=== PATIENT | male | born 1960 | race Caucasian/White ===

== ENCOUNTER 2022-06-20 17:12 | Inpatient (IN) | payer MEDICARE ==
[2022-06-20] VITALS (105 sets, daily range): BP systolic 74–145; BP diastolic 54–86
[~2022-06-20] VITALS: Ht 170.2 cm; Wt 62.8 kg
[2022-06-20 18:11] LABS: BASO% 0.3 % (0-3); EOS% 0.2 % (0-8); HEMATOCRIT 37.8 % (39.0-50.0); IMMATURE GRANULOCYTES 0.3 % (0.0-5.0); LYMPH% 3.8 % (15-41); MEAN CELL VOLUME 96.4 fL CALC (80.0-100.0); MEAN CORPUSCULAR HGB 28.1 pG CALC (26.0-32.0); MEAN CORPUSCULAR HGB CONC 29.1 g/dL CAL (32.0-36.0); MONO% 11.7 % (2-13); NEUT# 12.57 thou/uL (1.82-7.42); NEUT% 83.7 % (42-76); RED BLOOD COUNT 3.92 mill/uL (4.70-6.10); RED CELL DISTRI WIDTH 15.3 % (11.5-15.5)
[2022-06-20 18:22] LABS: ALBUMIN 3.8 g/dL (3.2-5.0); BILIRUBIN, TOTAL 0.2 mg/dL (0.2-1.3); CREATININE 1.5 mg/dL (0.7-1.3); POTASSIUM 4.4 mmol/l (3.5-5.1); PROTHROMBIN TIME 10.2 SECONDS (9.0-12.5); TOTAL PROTEIN 6.7 g/dL (6.3-8.2)
[2022-06-20] MEDS ORDERED: LOPRESSOR25 M1 PO (21:41)
[2022-06-20] MEDS ORDERED: PREDNISODT10 PO (21:43)
[2022-06-20] MEDS ORDERED: PROAIR DIG108 MCG/AC (21:45)
[2022-06-20] MEDS ORDERED: NORVASC5 M1 PO (21:45)
[2022-06-20] MEDS ORDERED: ESCITALOPRAM OX10 MG PO (21:46)
[2022-06-20] MEDS ORDERED: MELATONIN3 MG PO (21:47)
[2022-06-20] MEDS ORDERED: ALPRAZOLAM0.25 MG PO (21:49)
[2022-06-21] VITALS (46 sets, daily range): BP systolic 90–180; BP diastolic 62–133
[2022-06-21 06:15] LABS: MEAN CELL VOLUME 96.3 fL CALC (80.0-100.0); MEAN CORPUSCULAR HGB 27.9 pG CALC (26.0-32.0); MEAN CORPUSCULAR HGB CONC 28.9 g/dL CAL (32.0-36.0); RED BLOOD COUNT 3.23 mill/uL (4.70-6.10); RED CELL DISTRI WIDTH 14.9 % (11.5-15.5)
[2022-06-21 06:17] LABS: HEMATOCRIT 31.1 % (39.0-50.0)
[2022-06-21 06:20] LABS: ALKALINE PHOSPHATASE 56 u/l (38-126); ANION GAP 9 (6-22 (CALC)); BUN 16 mg/dL (9-20); BUN/CREATININE RATIO 25 (12-20 (CALC)); CALCULATED LDLCHOLESTEROL 44 mg/dL (62-129 (CALC)); CARBON DIOXIDE 31 mmol/l (22-30); CHLORIDE 101 mmol/l (95-108); CHOLESTEROL HDL RATIO 2.8 (<4.4 (CALC)); CREATININE 0.6 mg/dL (0.7-1.3); GFR FOR AFR.AMER. > 60 ML/MIN (>=60 (CALC)); GFR OTHER RACES > 60 ML/MIN (>=60 (CALC)); HDL CHOLESTEROL 42 mg/dL (39.0-59.0); MAGNESIUM 1.7 mg/dL (1.6-2.3); POTASSIUM 4.4 mmol/l (3.5-5.1); SGOT/AST 19 u/l (17-59); SODIUM 137 mmol/l (137-146); TOTAL CHOLESTEROL 115 mg/dl (0-199); TOTAL TRIGLYCERIDES 146 mg/dl (0-149); VLDL CHOLESTROL 29 mg/dl (8-62 (CALC))
[2022-06-21 06:28] LABS: ALBUMIN 2.9 g/dL (3.2-5.0); TOTAL PROTEIN 5.1 g/dL (6.3-8.2)
[2022-06-22] VITALS (25 sets, daily range): BP systolic 109–144; BP diastolic 60–85
[2022-06-22 05:25] LABS: HEMATOCRIT 28.3 % (39.0-50.0); HEMOGLOBIN 8.4 g/dl (14.0-18.0); MEAN CORPUSCULAR HGB 28.2 pG CALC (26.0-32.0); MEAN CORPUSCULAR HGB CONC 29.7 g/dL CAL (32.0-36.0); RED BLOOD COUNT 2.98 mill/uL (4.70-6.10); RED CELL DISTRI WIDTH 15.1 % (11.5-15.5)
[2022-06-22 05:42] LABS: ALBUMIN 3.1 g/dL (3.2-5.0); ALKALINE PHOSPHATASE 52 u/l (38-126); ANION GAP 6 (6-22 (CALC)); BUN 15 mg/dL (9-20); BUN/CREATININE RATIO 26 (12-20 (CALC)); CARBON DIOXIDE 37 mmol/l (22-30); CHLORIDE 98 mmol/l (95-108); CREATININE 0.6 mg/dL (0.7-1.3); GFR FOR AFR.AMER. > 60 ML/MIN (>=60 (CALC)); GFR OTHER RACES > 60 ML/MIN (>=60 (CALC)); POTASSIUM 4.1 mmol/l (3.5-5.1); SGOT/AST 20 u/l (17-59); SODIUM 137 mmol/l (137-146); TOTAL PROTEIN 5.7 g/dL (6.3-8.2)
[2022-06-23] VITALS (17 sets, daily range): BP systolic 114–151; BP diastolic 57–84
[2022-06-23 05:55] LABS: HEMATOCRIT 29.5 % (39.0-50.0); HEMOGLOBIN 8.9 g/dl (14.0-18.0); MEAN CELL VOLUME 93.7 fL CALC (80.0-100.0); MEAN CORPUSCULAR HGB 28.3 pG CALC (26.0-32.0); MEAN CORPUSCULAR HGB CONC 30.2 g/dL CAL (32.0-36.0); RED BLOOD COUNT 3.15 mill/uL (4.70-6.10); RED CELL DISTRI WIDTH 14.6 % (11.5-15.5)
[2022-06-23 06:07] LABS: ALKALINE PHOSPHATASE 48 u/l (38-126); ANION GAP 4 (6-22 (CALC)); BUN 14 mg/dL (9-20); BUN/CREATININE RATIO 23 (12-20 (CALC)); CARBON DIOXIDE 36 mmol/l (22-30); CHLORIDE 97 mmol/l (95-108); CREATININE 0.6 mg/dL (0.7-1.3); GFR FOR AFR.AMER. > 60 ML/MIN (>=60 (CALC)); GFR OTHER RACES > 60 ML/MIN (>=60 (CALC)); MAGNESIUM 1.9 mg/dL (1.6-2.3); POTASSIUM 3.9 mmol/l (3.5-5.1); SGOT/AST 15 u/l (17-59); SODIUM 133 mmol/l (137-146); TOTAL PROTEIN 5.6 g/dL (6.3-8.2)
[2022-06-24 03:59] VITALS: BP 119/81
[2022-06-24 05:40] LABS: HEMATOCRIT 34.3 % (39.0-50.0); HEMOGLOBIN 10.4 g/dl (14.0-18.0); IMMATURE GRANULOCYTES 0.5 % (0.0-5.0); LYMPH% 4.1 % (15-41); MEAN CELL VOLUME 92.5 fL CALC (80.0-100.0); MEAN CORPUSCULAR HGB CONC 30.3 g/dL CAL (32.0-36.0); MONO% 22.8 % (2-13); NEUT# 2.84 thou/uL (1.82-7.42); NEUT% 72.6 % (42-76); RED BLOOD COUNT 3.71 mill/uL (4.70-6.10); RED CELL DISTRI WIDTH 14.3 % (11.5-15.5)
[2022-06-24 05:58] LABS: ALBUMIN 2.8 g/dL (3.2-5.0); ALKALINE PHOSPHATASE 47 u/l (38-126); ANION GAP 6 (6-22 (CALC)); BUN 15 mg/dL (9-20); BUN/CREATININE RATIO 24 (12-20 (CALC)); CARBON DIOXIDE 37 mmol/l (22-30); CHLORIDE 95 mmol/l (95-108); CREATININE 0.6 mg/dL (0.7-1.3); GFR FOR AFR.AMER. > 60 ML/MIN (>=60 (CALC)); GFR OTHER RACES > 60 ML/MIN (>=60 (CALC)); POTASSIUM 4.3 mmol/l (3.5-5.1); SGOT/AST 14 u/l (17-59); SODIUM 134 mmol/l (137-146); TOTAL PROTEIN 4.9 g/dL (6.3-8.2)
[2022-06-24 07:03] VITALS: BP 139/90
[2022-06-24 07:53] LABS: URINE BILIRUBIN - DIPSTICK NEGATIVE (NEGATIVE); URINE BLOOD DIPSTICK NEGATIVE (NEGATIVE); URINE COLOR YELLOW; URINE GLUCOSE - DIPSTICK NEGATIVE (NEGATIVE); URINE KETONE NEGATIVE (NEGATIVE); URINE LEUK ESTERASE NEGATIVE (NEGATIVE); URINE PROTEIN - DIPSTICK NEGATIVE (NEG-TRACE); URINE SPECIFIC GRAVITY 1.025; URINE UROBILINOGEN - DIPSTICK 0.2 E.U./dL (0.2)
[2022-06-24 07:54] LABS: URINE NITRITE - DIPSTICK NEGATIVE (Negative)
[2022-06-24 10:35] VITALS: BP 131/85
[2022-06-24 14:30] VITALS: BP 115/79
[2022-06-24 19:00] VITALS: BP 138/85
[2022-06-24 19:27] VITALS: BP 138/85
[2022-06-25] VITALS (8 sets, daily range): BP systolic 129–140; BP diastolic 86–96
[2022-06-25 05:18] LABS: HEMATOCRIT 38.2 % (39.0-50.0); HEMOGLOBIN 11.9 g/dl (14.0-18.0); MEAN CELL VOLUME 91.2 fL CALC (80.0-100.0); MEAN CORPUSCULAR HGB 28.4 pG CALC (26.0-32.0); MEAN CORPUSCULAR HGB CONC 31.2 g/dL CAL (32.0-36.0); RED BLOOD COUNT 4.19 mill/uL (4.70-6.10); RED CELL DISTRI WIDTH 14.6 % (11.5-15.5)
[2022-06-25 05:30] LABS: ALBUMIN 2.8 g/dL (3.2-5.0); ALKALINE PHOSPHATASE 52 u/l (38-126); ANION GAP 8 (6-22 (CALC)); BUN 17 mg/dL (9-20); BUN/CREATININE RATIO 24 (12-20 (CALC)); CARBON DIOXIDE 36 mmol/l (22-30); CHLORIDE 93 mmol/l (95-108); CREATININE 0.7 mg/dL (0.7-1.3); GFR FOR AFR.AMER. > 60 ML/MIN (>=60 (CALC)); GFR OTHER RACES > 60 ML/MIN (>=60 (CALC)); MAGNESIUM 2.1 mg/dL (1.6-2.3); POTASSIUM 4.9 mmol/l (3.5-5.1); SGOT/AST 14 u/l (17-59); SODIUM 132 mmol/l (137-146); TOTAL PROTEIN 4.9 g/dL (6.3-8.2)
[2022-06-26 00:26] VITALS: BP 134/89
[2022-06-26 03:37] VITALS: BP 139/96
[2022-06-26 04:00] VITALS: BP 139/96
[2022-06-26 04:34] LABS: HEMATOCRIT 39.3 % (39.0-50.0); HEMOGLOBIN 12.1 g/dl (14.0-18.0); MEAN CELL VOLUME 90.3 fL CALC (80.0-100.0); MEAN CORPUSCULAR HGB 27.8 pG CALC (26.0-32.0); MEAN CORPUSCULAR HGB CONC 30.8 g/dL CAL (32.0-36.0); RED BLOOD COUNT 4.35 mill/uL (4.70-6.10); RED CELL DISTRI WIDTH 14.5 % (11.5-15.5)
[2022-06-26 04:52] LABS: ALBUMIN 2.7 g/dL (3.2-5.0); ALKALINE PHOSPHATASE 44 u/l (38-126); ANION GAP 7 (6-22 (CALC)); BUN 25 mg/dL (9-20); BUN/CREATININE RATIO 42 (12-20 (CALC)); CARBON DIOXIDE 33 mmol/l (22-30); CHLORIDE 93 mmol/l (95-108); CREATININE 0.6 mg/dL (0.7-1.3); GFR FOR AFR.AMER. > 60 ML/MIN (>=60 (CALC)); GFR OTHER RACES > 60 ML/MIN (>=60 (CALC)); MAGNESIUM 1.9 mg/dL (1.6-2.3); SGOT/AST 15 u/l (17-59); SODIUM 128 mmol/l (137-146); TOTAL PROTEIN 4.7 g/dL (6.3-8.2)
[2022-06-26 04:53] LABS: POTASSIUM 5.4 mmol/l (3.5-5.1)
[2022-06-26 06:09] VITALS: BP 142/95
[2022-06-26 09:20] VITALS: BP 144/95
[2022-06-26 17:40] VITALS: BP 139/94
[2022-06-27] VITALS (7 sets, daily range): BP systolic 113–146; BP diastolic 84–93
[2022-06-27 05:40] LABS: HEMATOCRIT 38.2 % (39.0-50.0); HEMOGLOBIN 11.7 g/dl (14.0-18.0); MEAN CORPUSCULAR HGB 27.9 pG CALC (26.0-32.0); MEAN CORPUSCULAR HGB CONC 30.6 g/dL CAL (32.0-36.0); RED BLOOD COUNT 4.2 mill/uL (4.70-6.10); RED CELL DISTRI WIDTH 14.8 % (11.5-15.5)
[2022-06-27 05:47] LABS: ALBUMIN 2.6 g/dL (3.2-5.0); ALKALINE PHOSPHATASE 45 u/l (38-126); ANION GAP 5 (6-22 (CALC)); BUN 23 mg/dL (9-20); BUN/CREATININE RATIO 40 (12-20 (CALC)); CARBON DIOXIDE 34 mmol/l (22-30); CHLORIDE 94 mmol/l (95-108); CREATININE 0.6 mg/dL (0.7-1.3); GFR FOR AFR.AMER. > 60 ML/MIN (>=60 (CALC)); GFR OTHER RACES > 60 ML/MIN (>=60 (CALC)); MAGNESIUM 1.9 mg/dL (1.6-2.3); POTASSIUM 5.1 mmol/l (3.5-5.1); SGOT/AST 17 u/l (17-59); SODIUM 128 mmol/l (137-146); TOTAL PROTEIN 4.5 g/dL (6.3-8.2)
[2022-06-28] VITALS (7 sets, daily range): BP systolic 109–159; BP diastolic 69–84
[2022-06-28 09:19] LABS: BASO% 0.1 % (0-3); HEMOGLOBIN 11.6 g/dl (14.0-18.0); IMMATURE GRANULOCYTES 4.6 % (0.0-5.0); LYMPH% 4.2 % (15-41); MEAN CELL VOLUME 91.1 fL CALC (80.0-100.0); MEAN CORPUSCULAR HGB 27.8 pG CALC (26.0-32.0); MEAN CORPUSCULAR HGB CONC 30.5 g/dL CAL (32.0-36.0); MONO% 8.5 % (2-13); NEUT# 8.57 thou/uL (1.82-7.42); NEUT% 82.6 % (42-76); RED BLOOD COUNT 4.17 mill/uL (4.70-6.10)
[2022-06-28 10:04] LABS: ALBUMIN 2.6 g/dL (3.2-5.0); ALKALINE PHOSPHATASE 48 u/l (38-126); ANION GAP 6 (6-22 (CALC)); BUN 15 mg/dL (9-20); BUN/CREATININE RATIO 27 (12-20 (CALC)); CARBON DIOXIDE 33 mmol/l (22-30); CHLORIDE 94 mmol/l (95-108); CREATININE 0.6 mg/dL (0.7-1.3); GFR FOR AFR.AMER. > 60 ML/MIN (>=60 (CALC)); GFR OTHER RACES > 60 ML/MIN (>=60 (CALC)); MAGNESIUM 1.9 mg/dL (1.6-2.3); POTASSIUM 4.7 mmol/l (3.5-5.1); SGOT/AST 22 u/l (17-59); SODIUM 128 mmol/l (137-146); TOTAL PROTEIN 4.5 g/dL (6.3-8.2)
[2022-06-28 19:28] LABS: C. DIFFICILE TOXIN A&B POSITIVE (NEGATIVE)
[2022-06-29 03:24] VITALS: BP 101/65
[2022-06-29 05:51] LABS: HEMATOCRIT 33.8 % (39.0-50.0); HEMOGLOBIN 10.3 g/dl (14.0-18.0); MEAN CELL VOLUME 91.4 fL CALC (80.0-100.0); MEAN CORPUSCULAR HGB 27.8 pG CALC (26.0-32.0); MEAN CORPUSCULAR HGB CONC 30.5 g/dL CAL (32.0-36.0); RED BLOOD COUNT 3.7 mill/uL (4.70-6.10)
[2022-06-29 05:58] LABS: ALBUMIN 2.4 g/dL (3.2-5.0); ALKALINE PHOSPHATASE 46 u/l (38-126); ANION GAP 5 (6-22 (CALC)); BUN 12 mg/dL (9-20); BUN/CREATININE RATIO 22 (12-20 (CALC)); CARBON DIOXIDE 34 mmol/l (22-30); CHLORIDE 95 mmol/l (95-108); CREATININE 0.6 mg/dL (0.7-1.3); GFR FOR AFR.AMER. > 60 ML/MIN (>=60 (CALC)); GFR OTHER RACES > 60 ML/MIN (>=60 (CALC)); MAGNESIUM 1.9 mg/dL (1.6-2.3); POTASSIUM 4.5 mmol/l (3.5-5.1); SGOT/AST 19 u/l (17-59); SODIUM 129 mmol/l (137-146); TOTAL PROTEIN 4.4 g/dL (6.3-8.2)
[2022-06-29 06:05] VITALS: BP 141/91
[2022-06-29 10:43] VITALS: BP 132/90
[2022-06-29 15:15] VITALS: BP 128/83
[2022-06-29 18:12] VITALS: BP 140/89
[2022-06-29 23:14] VITALS: BP 132/83
[2022-06-30] VITALS (7 sets, daily range): BP systolic 128–139; BP diastolic 78–91
[2022-06-30 06:16] LABS: HEMATOCRIT 33.2 % (39.0-50.0); MEAN CELL VOLUME 91.7 fL CALC (80.0-100.0); MEAN CORPUSCULAR HGB 27.6 pG CALC (26.0-32.0); MEAN CORPUSCULAR HGB CONC 30.1 g/dL CAL (32.0-36.0); RED BLOOD COUNT 3.62 mill/uL (4.70-6.10); RED CELL DISTRI WIDTH 15.1 % (11.5-15.5)
[2022-06-30 06:36] LABS: ALBUMIN 2.5 g/dL (3.2-5.0); ALKALINE PHOSPHATASE 42 u/l (38-126); ANION GAP 4 (6-22 (CALC)); BUN 10 mg/dL (9-20); BUN/CREATININE RATIO 18 (12-20 (CALC)); CARBON DIOXIDE 36 mmol/l (22-30); CHLORIDE 93 mmol/l (95-108); CREATININE 0.5 mg/dL (0.7-1.3); GFR FOR AFR.AMER. > 60 ML/MIN (>=60 (CALC)); GFR OTHER RACES > 60 ML/MIN (>=60 (CALC)); POTASSIUM 4.4 mmol/l (3.5-5.1); SGOT/AST 21 u/l (17-59); SODIUM 129 mmol/l (137-146); TOTAL PROTEIN 4.3 g/dL (6.3-8.2)
[2022-07-01 03:37] VITALS: BP 144/92
[2022-07-01 05:50] VITALS: BP 138/91
[2022-07-01 06:24] LABS: HEMATOCRIT 33.7 % (39.0-50.0); HEMOGLOBIN 10.1 g/dl (14.0-18.0); MEAN CELL VOLUME 92.8 fL CALC (80.0-100.0); MEAN CORPUSCULAR HGB 27.8 pG CALC (26.0-32.0); RED BLOOD COUNT 3.63 mill/uL (4.70-6.10); RED CELL DISTRI WIDTH 15.3 % (11.5-15.5)
[2022-07-01 07:01] LABS: ALBUMIN 2.5 g/dL (3.2-5.0); ALKALINE PHOSPHATASE 22 u/l (38-126); ANION GAP 4 (6-22 (CALC)); BUN 7 mg/dL (9-20); BUN/CREATININE RATIO 19 (12-20 (CALC)); CARBON DIOXIDE 37 mmol/l (22-30); CHLORIDE 93 mmol/l (95-108); CREATININE 0.4 mg/dL (0.7-1.3); GFR FOR AFR.AMER. > 60 ML/MIN (>=60 (CALC)); GFR OTHER RACES > 60 ML/MIN (>=60 (CALC)); POTASSIUM 4.1 mmol/l (3.5-5.1); SODIUM 129 mmol/l (137-146); TOTAL PROTEIN 4.6 g/dL (6.3-8.2)
[2022-07-01 07:16] LABS: BILIRUBIN, TOTAL 0.3 mg/dL (0.2-1.3); SGOT/AST 38 u/l (17-59)
[2022-07-01 09:31] VITALS: BP 107/64
[2022-07-01 16:13] VITALS: BP 134/88
[2022-07-01 18:59] VITALS: BP 136/84
[2022-07-02] VITALS (7 sets, daily range): BP systolic 103–150; BP diastolic 71–91
[2022-07-02 06:43] LABS: HEMATOCRIT 32.8 % (39.0-50.0); HEMOGLOBIN 9.8 g/dl (14.0-18.0); MEAN CELL VOLUME 93.4 fL CALC (80.0-100.0); MEAN CORPUSCULAR HGB 27.9 pG CALC (26.0-32.0); MEAN CORPUSCULAR HGB CONC 29.9 g/dL CAL (32.0-36.0); RED BLOOD COUNT 3.51 mill/uL (4.70-6.10); RED CELL DISTRI WIDTH 15.5 % (11.5-15.5)
[2022-07-02 07:04] LABS: ALBUMIN 2.2 g/dL (3.2-5.0); ANION GAP 4 (6-22 (CALC)); BUN 7 mg/dL (9-20); BUN/CREATININE RATIO 14 (12-20 (CALC)); CARBON DIOXIDE 35 mmol/l (22-30); CHLORIDE 96 mmol/l (95-108); CREATININE 0.5 mg/dL (0.7-1.3); GFR FOR AFR.AMER. > 60 ML/MIN (>=60 (CALC)); GFR OTHER RACES > 60 ML/MIN (>=60 (CALC)); POTASSIUM 3.8 mmol/l (3.5-5.1); SGOT/AST 22 u/l (17-59); SODIUM 132 mmol/l (137-146); TOTAL PROTEIN 3.9 g/dL (6.3-8.2)
[2022-07-02 07:14] LABS: ALKALINE PHOSPHATASE 48 u/l (38-126)
[2022-07-03 03:12] VITALS: BP 108/75
[2022-07-03 05:20] LABS: BASO% 0.2 % (0-3); EOS% 0.6 % (0-8); HEMATOCRIT 30.8 % (39.0-50.0); LYMPH% 5.7 % (15-41); MEAN CELL VOLUME 94.2 fL CALC (80.0-100.0); MEAN CORPUSCULAR HGB 27.5 pG CALC (26.0-32.0); MEAN CORPUSCULAR HGB CONC 29.2 g/dL CAL (32.0-36.0); MONO% 13.8 % (2-13); NEUT# 3.46 thou/uL (1.82-7.42); NEUT% 73.3 % (42-76); RED BLOOD COUNT 3.27 mill/uL (4.70-6.10); RED CELL DISTRI WIDTH 15.6 % (11.5-15.5)
[2022-07-03 05:45] LABS: IMMATURE GRANULOCYTES 6.4 % (0.0-5.0)
[2022-07-03 05:49] LABS: ALBUMIN 2.2 g/dL (3.2-5.0); ALKALINE PHOSPHATASE 48 u/l (38-126); ANION GAP 2 (6-22 (CALC)); BUN 5 mg/dL (9-20); BUN/CREATININE RATIO 10 (12-20 (CALC)); CARBON DIOXIDE 36 mmol/l (22-30); CHLORIDE 95 mmol/l (95-108); CREATININE 0.5 mg/dL (0.7-1.3); GFR FOR AFR.AMER. > 60 ML/MIN (>=60 (CALC)); GFR OTHER RACES > 60 ML/MIN (>=60 (CALC)); POTASSIUM 3.8 mmol/l (3.5-5.1); SGOT/AST 21 u/l (17-59); SODIUM 130 mmol/l (137-146); TOTAL PROTEIN 3.9 g/dL (6.3-8.2)
[2022-07-03 05:59] VITALS: BP 122/72
[2022-07-03 09:41] VITALS: BP 125/76
[2022-07-03 17:57] VITALS: BP 152/89
[2022-07-03 21:30] VITALS: BP 131/85
[2022-07-03 22:48] VITALS: BP 119/85
[2022-07-04 03:01] VITALS: BP 136/82
[2022-07-04 05:10] LABS: BASO% 0.3 % (0-3); EOS% 0.5 % (0-8); HEMATOCRIT 31.5 % (39.0-50.0); HEMOGLOBIN 9.2 g/dl (14.0-18.0); IMMATURE GRANULOCYTES 3.6 % (0.0-5.0); LYMPH% 5.5 % (15-41); MEAN CELL VOLUME 94.6 fL CALC (80.0-100.0); MEAN CORPUSCULAR HGB 27.6 pG CALC (26.0-32.0); MEAN CORPUSCULAR HGB CONC 29.2 g/dL CAL (32.0-36.0); MONO% 11.7 % (2-13); NEUT# 4.97 thou/uL (1.82-7.42); NEUT% 78.4 % (42-76); RED BLOOD COUNT 3.33 mill/uL (4.70-6.10); RED CELL DISTRI WIDTH 15.4 % (11.5-15.5)
[2022-07-04 05:26] LABS: ALBUMIN 2.4 g/dL (3.2-5.0); ALKALINE PHOSPHATASE 54 u/l (38-126); ANION GAP 3 (6-22 (CALC)); BUN 5 mg/dL (9-20); BUN/CREATININE RATIO 12 (12-20 (CALC)); CHLORIDE 93 mmol/l (95-108); CREATININE 0.4 mg/dL (0.7-1.3); GFR FOR AFR.AMER. > 60 ML/MIN (>=60 (CALC)); GFR OTHER RACES > 60 ML/MIN (>=60 (CALC)); POTASSIUM 3.7 mmol/l (3.5-5.1); SGOT/AST 22 u/l (17-59); SODIUM 132 mmol/l (137-146); TOTAL PROTEIN 3.9 g/dL (6.3-8.2)
[2022-07-04 05:39] LABS: CARBON DIOXIDE 40 mmol/l (22-30)
[2022-07-04 05:41] VITALS: BP 137/85
[2022-07-04 07:20] VITALS: BP 137/85
[2022-07-04 10:15] VITALS: BP 119/83
[2022-07-04 17:47] VITALS: BP 132/89
[2022-07-05 03:39] VITALS: BP 114/81
[2022-07-05 05:42] LABS: HEMATOCRIT 29.4 % (39.0-50.0); HEMOGLOBIN 8.7 g/dl (14.0-18.0); MEAN CELL VOLUME 94.8 fL CALC (80.0-100.0); MEAN CORPUSCULAR HGB 28.1 pG CALC (26.0-32.0); MEAN CORPUSCULAR HGB CONC 29.6 g/dL CAL (32.0-36.0); RED BLOOD COUNT 3.1 mill/uL (4.70-6.10); RED CELL DISTRI WIDTH 15.6 % (11.5-15.5)
[2022-07-05 05:46] VITALS: BP 121/79
[2022-07-05 05:54] LABS: ALBUMIN 2.3 g/dL (3.2-5.0); ALKALINE PHOSPHATASE 53 u/l (38-126); BUN 12 mg/dL (9-20); BUN/CREATININE RATIO 22 (12-20 (CALC)); CHLORIDE 90 mmol/l (95-108); CREATININE 0.6 mg/dL (0.7-1.3); GFR FOR AFR.AMER. > 60 ML/MIN (>=60 (CALC)); GFR OTHER RACES > 60 ML/MIN (>=60 (CALC)); MAGNESIUM 1.9 mg/dL (1.6-2.3); POTASSIUM 3.6 mmol/l (3.5-5.1); SGOT/AST 21 u/l (17-59); SODIUM 132 mmol/l (137-146); TOTAL PROTEIN 3.9 g/dL (6.3-8.2)
[2022-07-05 06:02] LABS: ANION GAP 4 (6-22 (CALC))
[2022-07-05 06:15] LABS: CARBON DIOXIDE 42 mmol/l (22-30)
[2022-07-05 09:29] VITALS: BP 119/72
[2022-07-05] MEDS ORDERED: DIFICID200 MG PO (13:20)
[2022-07-05 13:52] VITALS: BP 124/76
[2022-07-05 18:18] VITALS: BP 141/82
[2022-07-05 23:22] VITALS: BP 101/68
[2022-07-06 03:18] VITALS: BP 119/75
[2022-07-06 06:06] LABS: HEMATOCRIT 29.4 % (39.0-50.0); HEMOGLOBIN 8.9 g/dl (14.0-18.0); MEAN CELL VOLUME 93.9 fL CALC (80.0-100.0); MEAN CORPUSCULAR HGB 28.4 pG CALC (26.0-32.0); MEAN CORPUSCULAR HGB CONC 30.3 g/dL CAL (32.0-36.0); RED BLOOD COUNT 3.13 mill/uL (4.70-6.10); RED CELL DISTRI WIDTH 15.6 % (11.5-15.5)
[2022-07-06 06:26] LABS: ALBUMIN 2.6 g/dL (3.2-5.0); ALKALINE PHOSPHATASE 52 u/l (38-126); BUN 11 mg/dL (9-20); BUN/CREATININE RATIO 21 (12-20 (CALC)); CHLORIDE 86 mmol/l (95-108); CREATININE 0.5 mg/dL (0.7-1.3); GFR FOR AFR.AMER. > 60 ML/MIN (>=60 (CALC)); GFR OTHER RACES > 60 ML/MIN (>=60 (CALC)); MAGNESIUM 1.8 mg/dL (1.6-2.3); POTASSIUM 3.3 mmol/l (3.5-5.1); SGOT/AST 24 u/l (17-59); SODIUM 132 mmol/l (137-146); TOTAL PROTEIN 4.5 g/dL (6.3-8.2)
[2022-07-06 06:30] VITALS: BP 124/74
[2022-07-06 06:32] LABS: ANION GAP 5 (6-22 (CALC))
[2022-07-06 06:36] LABS: CARBON DIOXIDE 44 mmol/l (22-30)
[2022-07-06] MEDS ORDERED: LASIX 20 MG TAB20 MG PO (10:11)
[2022-07-06] MEDS ORDERED: FLORASTOR250 M1 PO (10:11)
== END 2022-07-06 15:08 | disposition home health service (06) | DRG 371 ==
LOC: ED 17:12 → ICU 21:06 → MS2 06-23 13:35
PROVIDERS: Family Medicine; Internal Medicine; Nurse Practitioner Family; ADMIT Internal Medicine; ATTEND Internal Medicine
PROC: 05HM33Z Insertion of Infusion Device into Right Internal Jugular Vein, Percutaneous Approach (ICD-10-PCS; principal; 2022-06-20)
PROC: 5A1955Z Respiratory Ventilation, Greater than 96 Consecutive Hours (ICD-10-PCS; 2022-06-20)
PROC: 3E043XZ Introduction of Vasopressor into Central Vein, Percutaneous Approach (ICD-10-PCS; 2022-06-20)
PROC: 0W9B3ZZ Drainage of Left Pleural Cavity, Percutaneous Approach (ICD-10-PCS; 2022-07-05)
DX: A04.71 Enterocolitis due to Clostridium difficile, recurrent (principal); J96.21 Acute and chronic respiratory failure with hypoxia; C92.10 Chronic myeloid leukemia, BCR/ABL-positive, not having achieved remission; J90 Pleural effusion, not elsewhere classified; R18.8 Other ascites; J44.1 Chronic obstructive pulmonary disease with (acute) exacerbation; I95.9 Hypotension, unspecified; I10 Essential (primary) hypertension; I48.91 Unspecified atrial fibrillation; F41.9 Anxiety disorder, unspecified; Z87.19 Personal history of other diseases of the digestive system; Z79.52 Long term (current) use of systemic steroids; Z87.891 Personal history of nicotine dependence; Z98.890 Other specified postprocedural states; Z99.81 Dependence on supplemental oxygen; Z20.822 Contact with and (suspected) exposure to COVID-19
CPT/HCPCS: J1650